=== PATIENT | male | born 1975 | race Caucasian/White ===

== ENCOUNTER 2019-01-06 09:36 | Outpatient (CLI) | payer BC, SELFPAY ==
[2019-01-06 13:25] LABS: ALT 72 U/L (12-78); AST 30 U/L (15-37); Albumin 4.1 g/dL (3.4-5.0); Alkaline Phosphatase 68 U/L (46-116); Anion Gap 8.8 mmol/L (3-11); BUN 20 mg/dL (7-18); Bilirubin, Total 0.8 mg/dL (0.2-1.0); CO2 27.2 mmol/L (21.0-32.0); CREATININE 0.92 mg/dL (0.70-1.30); Calcium 8.8 mg/dL (8.5-10.1); Chloride 105 mmol/L (98-107); Cholesterol 199 mg/dL (50-200); Glucose 87 mg/dL (70-100); HDL Cholesterol 45 mg/dL (40-60); LDL CHOLESTEROL 135 mg/dL (<100); Potassium 4.2 mmol/L (3.5-5.1); Sodium 141 mmol/L (136-145); Total Protein 7.4 g/dL (6.4-8.2); Triglyceride 137 mg/dL (30-150)
== END 2019-01-06 09:56 ==
DX: Z00.00 Encounter for general adult medical examination without abnormal findings (principal); Z13.220 Encounter for screening for lipoid disorders; E66.9 Obesity, unspecified
CPT/HCPCS: 36415; 80053; 80061; 83721

== ENCOUNTER 2019-05-21 23:01 | Emergency (ER) | payer BC, SELFPAY ==
--- NOTE | 2019-05-21 23:10 | W.ED.GENAD ---
Discharge Plan Disposition Patient Disposition: HOME Condition: Stable Discharge Details Chief Complaint: EyeProblem Clinical Impression: Corneal abrasion, right Primary Care Provider: Sarah Beth Khalil ED Provider: Ortiz Quiroz Home Meds and New Rx's Prescriptions: No Action tetanus and diphther. tox (PF) 5-2 Lf unit/0.5 mL syringe 0.5 ml IM ONCE Qty: 0.5 RF: 0 ibuprofen 200 MG capsule 3 tab PO TID PRNRF: 0 Discharge Instructions Instructions: Corneal Abrasion (ED) Additional Instructions: use the antibiotic every 6 hours in the right eye while awake if still symptomatic on Friday see your medicaid billing specialist if you feel you are worsening or have severe worsening of pain return to the emergency department Medical Decision Making 44 yo male states he was opening a box and hit the right eye, denies loc or falling. He has had burning sensation since so came here. He has injected right conjunctiva on the right, perrl, no obvious foreign body seen even on eyelid eversion. Had immediate relief of pain with tetracaine and has 2mm corneal abrasion at the 10 oclock position on the conjunctiva. No periorbital swelling and iop 10 in the right and 11 in the left. Will start on erythromycin ointment and advised f/u with [facility] on Friday (this is his optemetrist) if still symptomatic and return if worsening Differential Diagnosis conjunctivitis, corneal abrasion HPI General Mode of arrival: ambulatory. Date/Time Provider Initiated Documentation: 05/21/19 23:02. Limitations to Documentation: no limitations. Information obtained by: patient. History of Present Illness 44 year old M presents to the emergency department with the chief complaint of right eye pain, described as moderate, Quality is described as burning and aching, and is localized to the eyes and right. Patient reports no radiation. Patient started experiencing this hour(s) (1) and it has been constant. No relieving factors improve symptom(s), No exacerbating factors reported . Patient notes no other symptoms.. Patient did receive the following treatments prior to arrival, none Related Data Home Medications Medication Instructions Recorded Confirmed ibuprofen 3 tab PO TID PRN 02/12/16 01/06/19 Allergies Allergy/AdvReac Type Severity Reaction Status Date / Time kiwi Allergy Verified 01/06/19 08:28 Review of Systems Review of Systems All systems reviewed & are unremarkable except as noted in HPI and below Constitutional Denies chills, Denies fever(s) and Denies weakness Cardiovascular Denies chest pain and Denies dyspnea Respiratory Denies cough and Denies dyspnea Gastrointestinal Denies abdominal pain, Denies nausea and Denies vomiting Musculoskeletal Denies joint swelling Integumentary/Breasts Denies rash Neurologic Denies weakness PFSH Social History Smoking/Tobacco Use Status: Current-Occasional Tobacco Type: cigarettes Quit status: has quit before Second Hand Exposure: Yes Alcohol Intake: current Alcohol Intake frequency: holidays/special occasions only Drug use: Never Substance use type: other Household members: spouse and children Housing: house 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 Pets and animals: Yes Pets and animals: cat(s) and dog(s) Sexually active: Yes Do you think of yourself as: straight/heterosexual Current gender identity: male What is your relationship status?: How often do you talk on the phone with friends or family?: three or more times per week How often do you get together with friends or relatives?: three or more times per week How often do you attend adventist or baptism services?: 1-3 times per year Do you belong to any clubs or organized social groups?: no Panel score (0-1 are the most socially isolated patients): 2 What type of physical activity do you participate in: none Duration: < 15 minutes/day Frequency: 3-4 times per week Tammy/Adventism: Taoism Special tammy needs: No Seatbelt use: always Helmet use: Yes Helmet use: always Do you feel safe at home: Yes Do you feel safe in your relationship?: Yes Exam Const General: no acute distress Orientation: alert HENMT Head: normal to inspection Ears: external ears normal General nose exam: external nose normal Mouth: moist mucous membranes Eyes Eyelids: eyelids normal Neck Neck: normal visual inspection Resp Effort & Inspection: normal respiratory effort and able to speak in complete sentences Cardio Rate: regular rate Skin General skin exam: no rashes or lesions noted Neuro General: alert and oriented x3 Extrem General: normal to inspection Psych Mental Status: mental status grossly normal
[2019-05-21 23:11] VITALS: BP 132/82; PULSE 65; RESP 16; TEMP 36.4; O2SAT 95
--- NOTE | 2019-05-21 23:15 | ED.GENADUL_ITS ---
Discharge Plan Disposition Patient Disposition: HOME Condition: Stable Discharge Details Chief Complaint: EyeProblem Clinical Impression: Corneal abrasion, right Primary Care Provider: Sarah Beth Khalil ED Provider: Ortiz Quiroz Home Meds and New Rx's Prescriptions: No Action tetanus and diphther. 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 He has had burning sensation since so came here. He has injected right conjunctiva on the right, perrl, no obvious foreign body seen even on eyelid eversion. Had immediate relief of pain with tetracaine and has 2mm corneal abrasion at the 10 oclock position on the conjunctiva. No periorbital swelling and iop 10 in the right and 11 in the left. Will start on erythromycin ointment and advised f/u with [facility] on Friday (this is his optemetrist) if still symptomatic and return if worsening Differential Diagnosis conjunctivitis, corneal abrasion HPI General Mode of arrival: ambulatory . Date/Time Provider Initiated Documentation: 05/21/19 23:02 . Limitations to Documentation: no limitations . Information obtained by: patient . History of Present Illness 44 year old M presents to the emergency department with the chief complaint of right eye pain, described as moderate, Quality is described as burning and aching, and is localized to the eyes and right. Patient reports no radiation. Patient started experiencing this hour(s) (1) and it has been constant. No relieving factors improve symptom(s), No exacerbating factors reported . Patient notes no other symptoms.. Patient did receive the following treatments prior to arrival, none Related Data Home Medications Medication Instructions Recorded Confirmed ibuprofen 3 tab PO TID PRN 02/12/16 01/06/19 Allergies Allergy/AdvReac Type Severity Reaction Status Date / Time kiwi Allergy Verified 01/06/19 08:28 Review of Systems Review of Systems All systems reviewed & are unremarkable except as noted in HPI and below Constitutional Denies chills, Denies fever(s) and Denies weakness Cardiovascular Denies chest pain and Denies dyspnea Respiratory Denies cough and Denies dyspnea Gastrointestinal Denies abdominal pain, Denies nausea and Denies vomiting Musculoskeletal Denies joint swelling Integumentary/Breasts Denies rash Neurologic Denies weakness PFSH Social History Smoking/Tobacco Use Status: Current-Occasional Tobacco Type: cigarettes Quit status: has quit before Second Hand Exposure: Yes Alcohol Intake: current Alcohol Intake frequency: holidays/special occasions only Drug use: Never Substance use type: other Household members: spouse and children Housing: house 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 Pets and animals: Yes Pets and animals: cat(s) and dog(s) Sexually active: Yes Do you think of yourself as: straight/heterosexual Current gender identity: male What is your relationship status?: How often do you talk on the phone with friends or family?: three or more times per week How often do you get together with friends or relatives?: three or more times per week How often do you attend faith or sabianist services?: 1-3 times per year Do you belong to any clubs or organized social groups?: no Panel score (0-1 are the most socially isolated patients): 2 What type of physical activity do you participate in: none Duration: < 15 minutes/day Frequency: 3-4 times per week Tammy/Sikhism: Bahai Special tammy needs: No Seatbelt use: always Helmet use: Yes Helmet use: always Do you feel safe at home: Yes Do you feel safe in your relationship?: Yes Exam Const General: no acute distress Orientation: alert HENMT Head: normal to inspection Ears: external ears normal General nose exam: external nose normal Mouth: moist mucous membranes Eyes Eyelids: eyelids normal Neck Neck: normal visual inspection Resp Effort & Inspection: normal respiratory effort and able to speak in complete sentences Cardio Rate: regular rate Skin General skin exam: no rashes or lesions noted Neuro General: alert and oriented x3 Extrem General: normal to inspection Psych Mental Status: mental status grossly normal
[2019-05-21] MEDS: Erythromycin Ophth Oint 3.5 GM TUBE OP (23:27)
[2019-05-21] MEDS: Tetracaine 0.5% 4 ML BTL (23:28)
[2019-05-21] MEDS: Fluorescein STRIPS 100/BOX 1 MG (23:28)
== END 2019-05-21 23:33 | disposition home or self-care (01) ==
PROVIDERS: Emergency Provider Emergency Medicine
DX: S05.01XA Injury of conjunctiva and corneal abrasion without foreign body, right eye, initial encounter (principal); W22.8XXA Striking against or struck by other objects, initial encounter
CPT/HCPCS: 99283

== ENCOUNTER 2020-01-07 00:33 | Outpatient (CLI) | payer BC, SELFPAY ==
[2020-01-07 08:24] LABS: ALT 67 U/L (16-63); AST 26 U/L (15-37); Albumin 3.9 g/dL (3.4-5.0); Alkaline Phosphatase 72 U/L (46-116); Anion Gap 5.6 mmol/L (3-11); BUN 18 mg/dL (7-18); Bilirubin, Total 0.4 mg/dL (0.2-1.0); CO2 30.4 mmol/L (21.0-32.0); CREATININE 1.04 mg/dL (0.70-1.30); Calcium 8.5 mg/dL (8.5-10.1); Chloride 105 mmol/L (98-107); Glucose 98 mg/dL (74-106); Potassium 4.6 mmol/L (3.5-5.1); Sodium 141 mmol/L (136-145)
== END 2020-01-07 00:53 ==
DX: Z00.00 Encounter for general adult medical examination without abnormal findings (principal); Z13.228 Encounter for screening for other metabolic disorders
CPT/HCPCS: 36415; 80053

== ENCOUNTER 2020-01-13 09:15 | Outpatient (CLI) | payer BC, SELFPAY ==
--- NOTE | 2020-01-13 09:30 | DI.RAD_ITS ---
EXAM: XR CHEST 2V PA LATERAL INDICATION: chronic cough - blood tinged sputum every AM, R05. COMPARISON: CHEST 2 VIEWS PA,LAT from 12/20/2010 TECHNIQUE: 2D digital imaging was performed. FINDINGS: The lungs are suboptimally inflated. There is mild motion on the lateral view. Heart size is withi n normal limits for degree of inspiration. The lungs are clear. No mass, infiltrate, effusion or pn eumothorax is seen. IMPRESSION: Somewhat limited exam due to poor pulmonary inflation. No acute abnormality is seen. DATA REPOSITORY: RADIATION DOSE DELIVERED:
== END 2020-01-13 09:35 ==
DX: R05 Cough (principal); R04.2 Hemoptysis
CPT/HCPCS: 71046

== ENCOUNTER 2020-06-09 02:47 | Outpatient (CLI) | payer BC, SELFPAY ==
[2020-06-09 16:43] LABS: Ferritin 208 ng/mL (26-388); TSH (W/Ref FT4) 1.79 uIU/mL (0.36-3.74); Vitamin B12 250 pg/mL (193-986)
[2020-06-12 05:53] LABS: Vitamin D 25 Total 22.2 ng/ml (30-100)
== END 2020-06-09 03:07 ==
PROVIDERS: Visit Provider Internal Medicine Sleep Medicine
DX: M25.50 Pain in unspecified joint (principal); R53.83 Other fatigue; E55.9 Vitamin D deficiency, unspecified
CPT/HCPCS: 36415; 82306; 82607; 82728; 84443

== ENCOUNTER 2020-09-11 07:41 | Outpatient (CLI) | payer BC, SELFPAY ==
[2020-09-13 18:22] LABS: COVID-19 RT-PCR Result NEGATIVE (Negative)
== END 2020-09-11 08:01 ==
PROVIDERS: Visit Provider Internal Medicine Sleep Medicine
DX: Z11.59 Encounter for screening for other viral diseases (principal); Z01.818 Encounter for other preprocedural examination
CPT/HCPCS: U0003

== ENCOUNTER 2020-11-14 00:23 | Outpatient (CLI) | payer BC, SELFPAY ==
--- NOTE | 2020-11-14 06:30 | DI.US_ITS ---
EXAM: US SCROTUM CLINICAL HISTORY: Hydrocele,N43,3. TECHNIQUE: Scrotal ultrasound performed using grayscale, color-flow and spectral Doppler analysis. COMPARISON: No exams were available for comparison FINDINGS: Right testicle: 4.4 x 2.7 x 3.0 cm Echogenicity: Normal. Contour: Smooth. Mass: None seen. Microlithiasis: None. Hydrocele: None. Variocele: None. Hernia: No peristalsing bowel loop identified. Epididymis: Normal. Left testicle: 4.5 x 2.8 x 2.8 cm Echogenicity: Normal. Contour: Smooth. Mass: None seen. Microlithiasis: None. Hydrocele: Large hydrocele measuring 6.8 x 3.7 x 3.7 cm. Variocele: None. Hernia: No peristalsing bowel loop identified. Epididymis: Epididymal appendices are noted which are normal variants. DOPPLER: Color: Symmetric and uniform, no hyperemia. Duplex: Bilateral testicular arterial waveforms visualized. IMPRESSION: Large left hydrocele measuring 6.8 x 3.7 x 3.7 cm. DATA REPOSITORY:
== END 2020-11-14 00:43 ==
PROVIDERS: Visit Provider Nurse Practitioner Family
DX: N43.3 Hydrocele, unspecified (principal)
CPT/HCPCS: 76870

== ENCOUNTER 2020-11-29 04:00 | Outpatient (CLI) | payer BC, SELFPAY ==
[2020-11-30 14:42] LABS: COVID-19 RT-PCR UVMMC Result Negative (Negative)
== END 2020-11-29 04:20 ==
DX: Z20.828 Contact with and (suspected) exposure to other viral communicable diseases (principal)
CPT/HCPCS: U0003

== ENCOUNTER 2021-01-15 09:15 | Outpatient (CLI) | payer BC, SELFPAY ==
[2021-01-15 12:41] LABS: ALT 71 U/L (16-63); AST 28 U/L (15-37); Albumin 4.1 g/dL (3.4-5.0); Alkaline Phosphatase 77 U/L (46-116); Anion Gap 6.4 mmol/L (3-11); BUN 19 mg/dL (7-18); Bilirubin, Total 0.6 mg/dL (0.2-1.0); CO2 30.6 mmol/L (21.0-32.0); Calcium 8.7 mg/dL (8.5-10.1); Chloride 104 mmol/L (98-107); Glucose 100 mg/dL (74-106); Potassium 4.7 mmol/L (3.5-5.1); Sodium 141 mmol/L (136-145); Total Protein 7.4 g/dL (6.4-8.2)
== END 2021-01-15 09:16 | disposition home or self-care (01) ==
LOC: LOS 09:15
DX: Z00.00 Encounter for general adult medical examination without abnormal findings (principal); Z13.228 Encounter for screening for other metabolic disorders
CPT/HCPCS: 36415; 80053

== ENCOUNTER 2021-01-22 10:30 | Outpatient (CLI) | payer BC, SELFPAY ==
[2021-01-23 11:48] LABS: COVID-19 RT-PCR UVMMC Result Negative (Negative)
== END 2021-01-22 10:31 | disposition home or self-care (01) ==
LOC: LBO 10:30
DX: Z20.822 Contact with and (suspected) exposure to COVID-19 (principal)
CPT/HCPCS: U0003

== ENCOUNTER 2021-01-29 09:05 | Outpatient (CLI) | payer BC, SELFPAY ==
[2021-01-30 12:49] LABS: COVID-19 RT-PCR UVMMC Result Negative (Negative)
== END 2021-01-29 09:06 | disposition home or self-care (01) ==
LOC: LBO 09:05
DX: Z20.822 Contact with and (suspected) exposure to COVID-19 (principal)
CPT/HCPCS: U0003

== ENCOUNTER 2021-05-07 02:28 | Outpatient (CLI) | payer BC, SELFPAY ==
[2021-05-08 14:33] LABS: COVID-19 RT-PCR UVMMC Result Negative (Negative)
== END 2021-05-07 02:29 | disposition home or self-care (01) ==
LOC: LBO 02:28
DX: Z20.822 Contact with and (suspected) exposure to COVID-19 (principal)
CPT/HCPCS: U0003

== ENCOUNTER 2022-09-24 21:15 | Emergency (ER) | payer BC, SELFPAY ==
[2022-09-24 21:20] VITALS: BP 139/76; PULSE 74; RESP 20; TEMP 36.9; O2SAT 95
--- NOTE | 2022-09-24 22:15 | DI.RAD_ITS ---
Exam(s) XR KNEE RT 3V AP,LAT,LIA EXAM: XR KNEE RT 3V AP,LAT,LIA CLINICAL HISTORY: right knee injury. TECHNIQUE: 2D digital imaging was performed. Three views. COMPARISON: No exams were available for comparison FINDINGS: BONES: No acute fracture is present. No bony destructive lesion is seen. JOINTS: The knee is normally aligned. No joint effusion is seen. SOFT TISSUE: Normal. IMPRESSION: Unremarkable radiographs of the right knee. DATA REPOSITORY: RADIATION DOSE DELIVERED:
[2022-09-24] MEDS: Ketorolac 15 MG/ML VIAL IM (22:44)
--- NOTE | 2022-09-24 23:15 | DI.VRAD_ITS ---
PROCEDURE INFORMATION: Exam: XR Right Knee Exam date and time: 09/24/2022 10:57 PM Age: 47 years old Clinical indication: Other: Right knee injury TECHNIQUE: Imaging protocol: Radiologic exam of the Right knee. Views: 3 views. COMPARISON: CR RIGHT ANKLE COMPLETE 02/12/2016 7:09 PM FINDINGS: Bones/joints: No displaced fractures or dislocations. Soft tissues: Normal. IMPRESSION: No acute findings. Dictated and Authenticated by: Rowdy Merchant MD. Ordering:KIRAN Samuel MD
--- NOTE | 2022-09-24 23:22 | ED.GENADUL_ITS ---
Discharge Plan Disposition Patient Disposition: HOME Condition: Stable Discharge Details Clinical Impression: Right knee sprain Primary Care Provider: Unknown,Unknown ED Provider: Jimmie Hagan Home Meds and New Rx's Prescriptions: No Action cholecalciferol (vitamin D3) 25 mcg (1,000 unit) capsule 25 mcg PO DAILY Discharge Instructions Instructions: Knee Sprain (ED) Additional Instructions: You may continue to take [id number] medication as needed for discomfort. Please wear knee brace until you are seen by orthopedics and use crutches at least for the next 4 to 7 days and then slowly advance activity as tolerated. Follow-up with orthopedist as directed by the office Referrals: [facility] [Provider Group] Discharge Data Discharge Date/Time-TO BE ENTERED AT DEPARTURE: 09/24/22 23:46 Medical Decision Making Patient presenting the ER for chief complaint of right knee injury. 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 He initially was able to keep mobile and weightbearing but then after about 3 hours he has no longer able to fully extend his knee and states significant both lateral and medial pain. Physical exam shows pain to palpation of the medial knee but no ligamentous pain on testing to the medial knee but more laxity and pain to the lateral knee. Anterior and posterior drawer is unremarkable and does not elicit pain. Suspect knee sprain but will perform radiological imaging due to patient being nonweightbearing. Patient given Toradol pending results Review of radiological imaging and radiologist interpretation shows no acute findings. Patient placed in hinged knee brace and on crutches and placed on Ortho follow-up list. After discussion of diagnosis and plan of care patient has no further needs, questions, or concerns and states clear understanding to return to the emergency department for any worsening symptoms. This documentation was generated using [employer] dictation system, please disregard any oddities of phrase or misspellings. Imaging Data Radiologic Study: Imaging: X-Ray Radiologist's impression: FINDINGS: Bones/joints: No displaced fractures or dislocations. Soft tissues: Normal. IMPRESSION: No acute findings. HPI General Mode of arrival: wheelchair . Date/Time Provider Initiated Documentation: 09/24/22 21:53 . Limitations to Documentation: no limitations . Information obtained by: patient and RN notes reviewed . History of Present Illness 47 year old M presents to the emergency department with the chief complaint of right knee injury, described as moderate, with intensity rated at 4. Quality is described as aching and sharp, and is localized to the right and lower extremity. Patient started experiencing this hour(s) (4) and it has been constant. Immobilization improves symptom(s), and Rest improves symptom(s), Movement worsens symptoms . Patient notes no other symptoms.. Patient did receive the following treatments prior to arrival, none Related Data Home Medications Medication Instructions Recorded Confirmed cholecalciferol (vitamin D3) 25 25 mcg PO DAILY 01/16/21 07/02/22 mcg (1,000 unit) capsule Allergies Allergy/AdvReac Type Severity Reaction Status Date / Time kiwi Allergy Verified 07/02/22 15:07 General Stated Complaint: Orthopedic VIK: 4 Review of Systems Narrative: 6 systems reviewed and unremarkable except what is marked below. Musculoskeletal Musculoskeletal: Reports as per HPI, Reports arthralgias, Reports limited range of motion, Denies numbness and Denies tingling Integumentary/Breasts Skin/Breast: Denies wounds Neurologic Neurologic: Denies numbness and Denies tingling PFSH All Active Problems (Updated 09/24/22 @ 23:28 by Jimmie Hagan NP) Right knee sprain (Acute) Hydrocele in adult (Acute) Periodic limb movement disorder (Acute) Per sleep clinic - 05/29/2020 BERT on CPAP (Chronic) Severe per sleep study Cough in adult (Acute) Healthcare maintenance (Acute) Shoulder pain, right (Acute) Obesity (Chronic) Has daytime drowsiness (Acute 03/02/18) Acute pain of left knee (Acute 01/29/17) Abdominal discomfort in left upper quadrant (Acute 03/02/18) Medical History Abdominal discomfort in left upper quadrant (03/02/18) Acute pain of left knee (01/29/17) Cough in adult Fatigue Has daytime drowsiness (03/02/18) Obesity BERT on CPAP Severe per sleep study Periodic limb movement disorder Per sleep clinic - 05/29/2020 Shoulder pain, right Surgical History PROCEDURES l knee tumor removed (childhood) Family History Father Pancreatic cancer Sister No problems noted. Maternal Grandfather Diabetes Heart disease Hyperlipidemia Stroke Lung cancer Paternal Grandfather No problems noted. Maternal Grandmother No problems noted. Paternal Grandmother No problems noted. Son No problems noted. Son Anxiety Daughter No problems noted. Daughter No problems noted. Mother Diabetes Depression Hyperlipidemia Other Family history of prostate cancer Social History Smoking/Tobacco Use Status: Former Tobacco Use Smokeless tobacco user: chewing tobacco Quit status: has quit before Second Hand Exposure: Yes Smoking risk assessment performed?: Yes Alcohol Intake: current Alcohol Intake frequency: holidays/special occasions only Alcohol type: hard liquor Drug use: Never Substance use type: does not use and other Counseling given: No Counseling provided: none Caregiver/Support person: Yes Household members: spouse Housing: house Do you need help understanding health information?: Rarely 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 Pets and animals: Yes Pets and animals: cat(s) and dog(s) Sexually active: Yes Do you think of yourself as: straight/heterosexual Current gender identity: male What is your relationship status?: How often do you talk on the phone with friends or family?: three or more times per week How often do you get together with friends or relatives?: once per week How often do you attend christianity or jehovah's witness services?: 1-3 times per year Do you belong to any clubs or organized social groups?: no Panel score (0-1 are the most socially isolated patients): 2 What type of physical activity do you participate in: none Duration: < 15 minutes/day Frequency: daily Tammy/Buddhism: Mu-Ism Special tammy needs: No Seatbelt use: always Helmet use: Yes Helmet use: always Drive intox or ride w/intox transit driver: No Do you feel safe at home: Yes Do you feel safe in your relationship?: Yes Exam Const General: cooperative, no acute distress and not ill appearing Orientation: alert, awake and oriented x3 HENMT Mouth: moist mucous membranes Resp Effort & Inspection: normal respiratory effort, able to speak in complete sentences and no respiratory distress Cardio Rate: regular rate Rhythm: regular rhythm Pulses: normal peripheral pulses Skin General skin exam: no rashes or lesions noted Neuro General: patient alert, patient awake, patient oriented x3, moves all extremities and no focal motor deficits Sensory Exam: no sensory deficits noted Extrem General: normal exam except as noted Right lower extremity: knee Details: tenderness Location: of the medial joint line and knee ligament exam abnormal Details: varus stress test normal Details: both pain and laxity noted Course Vital Signs Vital signs: Vital Signs Temperature 36.9 C 09/24/22 21:20 Pulse 74 09/24/22 21:20 Respiratory Rate 20 09/24/22 21:20 Blood Pressure 139/76 09/24/22 21:20 Pulse Oximetry 95 09/24/22 21:20 Temperature 36.9 C 09/24/22 21:20 Temperature Source Temporal Artery Scan 09/24/22 21:20 Pulse 74 09/24/22 21:20 Respiratory Rate 20 09/24/22 21:20 Blood Pressure 139/76 09/24/22 21:20 Blood Pressure Position Sitting 09/24/22 21:20 Pulse Oximetry 95 09/24/22 21:20 Oxygen Delivery Method Room Air 09/24/22 21:20 Oxygen Flow Rate 0 09/24/22 21:20 Pain Level 4 09/24/22 21:20
== END 2022-09-24 23:46 | disposition home or self-care (01) ==
PROVIDERS: Emergency Provider Nurse Practitioner Family
DX: S83.8X1A Sprain of other specified parts of right knee, initial encounter (principal); X50.1XXA Overexertion from prolonged static or awkward postures, initial encounter
CPT/HCPCS: 29505; 73562; 96374; 99284; 99283; J1885

== ENCOUNTER → 2022-10-15 02:20 | Outpatient (CLI) | payer BC, SELFPAY ==
--- NOTE | 2022-10-15 07:00 | DI.MRI_ITS ---
Exam(s) MR LOWER JOINT RT WO EXAM: MR LOWER JOINT RT WO CLINICAL HISTORY: R KNEE PAIN,SPRAIN,[id number]. TECHNIQUE: Multiplanar multisequence MRI was performed. COMPARISON: CR,XR XR KNEE RT 3V AP,LAT,LIA from 09/24/2022 FINDINGS: BONES: There are small contusions seen involving the medial aspects of both the medial femoral condyl e in the medial tibial plateau. No fracture is identified. JOINTS: There is mild thinning of the articular cartilage in the lateral patellar facet inferiorly. The articular cartilage is otherwise well maintained. There is a small joint effusion. TENDONS: Extensor mechanism: Unremarkable. Medial retinaculum: Unremarkable. Lateral retinaculum: Unremarkable. Popliteus: Unremarkable. MUSCLES: Unremarkable. MENISCI: There is some irregularity and abnormal signal seen in the posterior aspect of the body of t he medial meniscus suspicious for tear. The lateral meniscus is unremarkable. SOFT TISSUES: There is edema seen in the soft tissues particularly anterior to extensor mechanism. LIGAMENTS: Anterior Cruciate: Unremarkable. Posterior Cruciate: Unremarkable. Medial Collateral:There is fluid seen around the intact medial collateral ligament consistent with a sprain. Lateral Collateral: Unremarkable. OTHER: IMPRESSION: 1. MCL sprain. 2. Findings suspicious for a tear of the body of the medial meniscus. 3. Small contusions involving the medial aspects of both the medial femoral condyle and the medial ti bial plateau. DATA REPOSITORY:
== END ==
PROVIDERS: PCP Nurse Practitioner Family; Visit Provider Student in an Organized Health Care Education/Training Program
DX: S83.411A Sprain of medial collateral ligament of right knee, initial encounter (principal); X58.XXXA Exposure to other specified factors, initial encounter
CPT/HCPCS: 73721

== ENCOUNTER 2022-11-07 12:01 | Day surgery (SDC) | payer BC, SELFPAY ==
[2022-11-07] VITALS (9 sets, daily range): BP systolic 115–146; BP diastolic 56–92; PULSE 54–70; RESP 12–18; TEMP 36.1–36.4; O2SAT 97–99; BMI 41.7
[2022-11-07] MEDS: Lactated Ringers 1,000 ML 30 ML IV (12:43)
--- NOTE | 2022-11-07 14:28 | W.ANESPRE ---
General Info Date of Service Date Performed: 11/07/22 Height: 5 ft 10 in Weight: 132 kg Body Mass Index (BMI): 41.7 Surgical Procedure: Operation Date: 11/07/22 15:10 Proposed Procedure Side Surgeon p Knee Arthroscopy /Partial Medial Menisectomy VS Repair Right Yaw Kee MD Meds Allergies and Home Medications Allergies Allergy/AdvReac Type Severity Reaction Status Date / Time kiwi Allergy Severe Anaphylaxis Verified 11/05/22 12:20 Home Medication Medication Instructions Recorded Unknown [No Known Home Meds] 10/08/22 Current Visit Medications: Current Medications Generic Name Dose Route Start Last Admin Trade Name Freq PRN Reason Stop Dose Admin Ringer's Solution 1,000 mls @ 30 mls/hr 11/07/22 06:00 11/07/22 12:43 IV 12/06/22 23:59 30 mls/hr INFUSION CLEMENT Administration Cefazolin Sodium 3,000 mg/ 100 mls @ 200 mls/hr 11/07/22 06:00 Sodium Chloride IVPB 11/07/22 16:00 PREOP CLEMENT IV Miscellaneous Supplies 1 each 11/07/22 06:00 Iv Access IV 12/06/22 23:59 DIRECTED CLEMENT Oxycodone HCl 0 mg 11/07/22 07:05 Oxycodone 5 Mg Tab PO Q3H PRN PRN Pain Sodium Chloride 0 ml 11/07/22 06:00 Normal Saline Flush 10 Ml Syr IV 12/06/22 23:59 PRN PRN Sodium Chloride 0 ml 11/07/22 06:00 Normal Saline 10 Ml Vial IJ 12/06/22 23:59 DIRECTED PRN Sterile Water 0 ml 11/07/22 06:00 Water,Injection,Sterile 10 Ml Vial IJ 12/06/22 23:59 DIRECTED PRN PFSH Active Problems Active Problems: Problem Status Onset Code Abdominal discomfort in left upper quadrant 03/02/18 R10.12 Acute pain of left knee 01/29/17 M25.562 Has daytime drowsiness 03/02/18 R40.0 Obesity E66.9 Shoulder pain, right Healthcare maintenance Cough in adult R05 BERT on CPAP G47.33, Z99.89 Periodic limb movement disorder G47.61 Hydrocele in adult N43.3 Acute medial meniscus tear of right knee 09/24/22 S83.241A Medical History Medical History Internal derangement of right knee Surgical History Surgical History PROCEDURES l knee tumor removed (childhood) S/P tendon repair Finger Tobacco Smoking/Tobacco Use Status: Former Tobacco Use Smokeless tobacco user: chewing tobacco Passive smoking exposure: No Second hand exposure: Yes Alcohol Alcohol Intake: current Alcohol intake frequency: holidays/special occasions only Alcohol type: hard liquor Substance Use Substance use: Never Substance use type: does not use and other Counseling provided: none Vital Signs and Lab Results Vital Signs Most Recent Vital Signs in EMR: Most Recent Vital Signs Temp Pulse Resp BP Pulse Ox 36.1 C L 54 L 15 128/92 H 98 11/07/22 12:06 11/07/22 12:06 11/07/22 12:06 11/07/22 12:06 11/07/22 12:06 Lab Results Blood Type / Crossmatch: No Data to Display Complete Blood Count: No Data to Display Complete Metabolic Panel: No Data to Display Liver Function Panel: No Data to Display Coagulation Panel: No Data to Display Cardiac Panel: No Data to Display Arterial Blood Gas: No Data to Display Venous Blood Gas: No Data to Display Pancreas Panel: No Data to Display Thyroid Panel: No Data to Display Infectious Disease: No Data to Display Blood Cultures: No Data to Display Toxicology Panel: No Data to Display Anesthesia Assessment and Plan Anesthesia History Personal History: Delayed Emergence Family History: No Family History of Anesthesia Complications Exercise Tolerance Exercise Tolerance: Metabolic Equivalents>4 Pertinent Negatives Pertinent Negatives: No Symptoms of GERD, No Major Cardiovascular Symptoms or Complaints, No Major Pulmonary Symptoms or Complaints (BERT doesn't wear CPAP) and No History of CVA/TIA Cardiac & Pulmonary Exam Cardiac Exam: Normal S1/S2 Heart Sounds Pulmonary Exam: Clear Bilateral Breath Sounds Implantable Cardiac Device Does patient have a Pacemaker or an ICD?: No Airway Exam Known Difficult Airway: No Mallampati Class: 2 Mouth Opening: Normal (> 3cm) Thyromental Distance: Greater than 3 cm Facial Hair: Full Gastelum Neck Range of Motion: Full ROM Neck Circumference: Thick Teeth Condition: Normal Dentition Airway Comments: #11 chipped Missing teeth upper right ASA Classification ASA Score: ASA 2 Emergency Case?: No NPO Status NPO Status: NPO Clears >2 hours, Solids >8 hours Anesthesia Plan Resuscitation Status: Full Code Anesthesia Technique: General Anesthesia Airway Planned: LMA Monitors Used: Standard Monitors
[2022-11-07] MEDS: ceFAZolin 3,000 MG in Normal Saline 100 ML 200 MG IVPB (14:45)
--- NOTE | 2022-11-07 15:00 | W.PM.OP ---
Date of service: 11/07/22 Time of Service: 15:00 Operative Note Operative Note DATE OF PROCEDURE: 11/07/22 PRE-OP DIAGNOSIS: Right knee 1. Medial meniscus tear POST-OP DIAGNOSIS: same 2. Patellofemoral and medial femoral condyle chondromalacia PROCEDURE: Right knee 1. Partial medial meniscectomy, CPT #88499 SURGEON: Yaw Kee RELATIONSHIP MANAGEMENT LEAD: None None ANESTHESIA TYPE: Local By Surgeon and General LMA/ETT Refer to Anesthesia Record ESTIMATED BLOOD LOSS: 5 PATHOLOGY: none sent TOURNIQUET TIME: 0 Patient was transported to: PACU Patient's condition: stable Indications: Please see complete medical record for details. Findings: Exam under anesthesia: Full ROM, stable Arthroscopic findings: Moderate patellofemoral chondromalacia undersufrace central patella and corresponding central trochlea. Moderate chondromalacia medial femoral condyle. Oblique white to red-white zone medial meniscus tear located at the posterior horn and body junction. Intact ACL. Intact lateral meniscus. Procedure Description: In the operating room, genral anesthesia was induced. The patient was positioned supine on the operating room table. All bony prominences were well-padded. Preoperative antibiotics were administered. The knee was prepped and draped in the usual sterile fashion. The correct patient, procedure, and side of the procedure were all verified prior to incision. Exam under anesthesia was performed. 10 cc of 0.25% bupivacaine containing epinephrine was infiltrated about the planned anteromedial and anterolateral knee arthroscopy portals. The portals were established and a complete diagnostic arthroscopy was performed with relevant findings detailed above. Using a combination of hand instruments including meniscal biters and a power shaver and working through the anteromedial and anterolateral portals the medial meniscus was debrided of all torn tissue to a stable margin. Care was taken to preserve as much meniscus tissue was possible. The meniscal remnant was probed and found to have a stable margin, stable root, and no other tears Under direct arthroscopic visualization an 18-gauge needle was passed into the knee from superolateral into the suprapatellar pouch. The knee was copiously irrigated with arthroscopic fluid until there was a clear effluent before being drained of all fluid. The anteromedial and anterolateral portals were closed in 3-0 Monocryl in a buried interrupted fashion. 20 cc of 0.25% bupivacaine with epinephrine containing 4 mg of morphine was infiltrated into the knee through the previously placed needle. Mastisol, Steri-Strips, and 4 x 4 gauze were applied over the incisions followed by sterile soft roll. The knee was then wrapped gently with an ALLEN comressive bandage. The patient awoke from anesthesia without complication and was transferred to the recovery room in a stable condition.
[2022-11-07] MEDS: EPINEPHrine 30 MG/30 ML VIAL (15:10)
[2022-11-07] MEDS: Bupivacaine 0.25% Pres-Free W/EPI 30 ML VIAL (15:10)
[2022-11-07] MEDS: MORPHine 4 MG/ML SYR (15:11)
--- NOTE | 2022-11-07 16:19 | W.PM.DSUDISC ---
Date of service: 11/07/22 Time of Service: 16:00 Discharge Plan Disposition Patient Disposition: Home Discharge Details Attending Provider: Yaw Kee Primary Care Provider: Simona Jaffe Home Meds and New Rx's Prescriptions: New aspirin 81 mg tablet,delayed release (DR/EC) 81 mg PO DAILY 14 Days Qty: 14 0RF naproxen 250 mg tablet 250 - 500 mg PO BID PRNQty: 40 0RF Rx Instructions: take with a meal oxycodone 5 mg tablet 5 - 10 mg PO Q4H MDD 30 mg PRN (Reason: moderate to severe pain) Qty: 18 0RF Discharge Instructions Additional Instructions: Surgery: Right knee arthroscopy with partial medialmeniscectomy Activity: Weightbearing as tolerated. Advance range of motion as comfort allows. No knee brace or crutches needed as soon as comfortable. Recommend avoiding high?impact activities for 6-8 weeks. A physical therapy prescription will be sent electronically to start in about 3 weeks. Prescriptions: Aspirin 81 mg daily tomorrow afternoon or evening, >24 hours after surgery, for 2 weeks Naproxen 250 mg take 1-2 every 12 hours with a meal as needed for moderate pain Oxycodone 5 mg take 1-2 every 4-6 hours as needed for severe pain You may use [id number] Tylenol (acetaminophen) as needed for mild pain. These pain medications may be taken all at once or in different combinations as needed. Also, recommend Colace (docusate) as a stool softener as surgery and pain medicine cause constipation. You may try [id number] diphenhydramine (Benadryl) 25-50 mg nightly as a sleep aid Dressings: Leave dressing in place for 3 days. May then remove and leave open to air or cover incisions with Band-Aids. May shower after 5 days. Follow-up: 10-[address] Kee You may take off the leg compression stockings this evening at home. You may also leave them on a few days longer if you have a history of leg swelling or edema. Let us know right away if you develop any redness, drainage, fevers, chest pain, or trouble breathing. Do not drink alcohol or drive for at least 24 hours after anesthesia. Please call the office during business hours with any questions or concerns. Discharge Orders Discharge Orders: Discharge Order (Routine); Ordered 11/07/22 Ordered By: Yaw Kee DS: Diagnosis Discharge Diagnosis (1) Acute medial meniscus tear of right knee: Status: Acute
--- NOTE | 2022-11-07 16:31 | W.ANESPOSTOP ---
Postoperative Evaluation Date, Time and Location Date Performed: 11/07/22 Time Performed: 16:31 Patient Location: Day Surgery Unit Vital Signs Most Recent Imported Vital Signs: Most Recent Vital Signs Temp Pulse Resp BP Pulse Ox 36.4 C L 58 L 14 139/76 99 11/07/22 16:15 11/07/22 16:15 11/07/22 16:15 11/07/22 16:15 11/07/22 16:15 Pain Score Most Recent Pain Score: Most Recent Pain Score Pain Level 1 11/07/22 12:06 Assessment Mental Status: Awake (Alert & Oriented to Patient Baseline) Airway and Respiratory Function: Patent airway with normal (patient baseline) respiratory exam Cardiovascular Function: Hemodynamically Stable Hydration Status: Adequately Hydrated Nausea & Vomiting: No Nausea or Vomiting Pain: Pt. Denies Any Pain Peripheral Nerve Block: Patient did not receive a nerve block Postoperative Comments:: Patient continues to shiver, offered demerol as a potential remedy, patient did not want to try a medication and wishes to let it take it's course.
== END 2022-11-07 17:40 | disposition home or self-care (01) ==
PROVIDERS: PCP Nurse Practitioner Family; Visit Provider Student in an Organized Health Care Education/Training Program
PROC: (CPT 29870; principal; 2022-11-07 15:00)
DX: S83.241A Other tear of medial meniscus, current injury, right knee, initial encounter (principal); M22.41 Chondromalacia patellae, right knee; G47.33 Obstructive sleep apnea (adult) (pediatric); E66.9 Obesity, unspecified; Z68.41 Body mass index [BMI] 40.0-44.9, adult; X58.XXXA Exposure to other specified factors, initial encounter
CPT/HCPCS: 29881; J0131; J0690; J1100; J1885; J2250; J2270; J2405

== ENCOUNTER 2023-02-28 11:23 | Outpatient (CLI) | payer BC, SELFPAY ==
[2023-02-28 07:26] LABS: Abs Immature Grans 0.02 10^3/uL (0.0-0.06); Absolute Basophil Count 0.08 10^3/uL (0.0-0.2); Absolute Eosinophil Count 0.38 10^3/uL (0.0-0.7); Absolute Lymphocyte Count 2.24 10^3/uL (1.2-3.4); Absolute Neutrophil Count 3.07 10^3/uL (1.2-6.7); Basophils % 1.2; Eosinophils % 5.9; HCT 45.5 % (40.0-50.0); HGB 15.7 g/dL (13.5-17.5); Immature Grans % 0.3; Lymphocytes % 34.5; MCH 30.4 pg (27.0-33.0); MCHC 34.5 % (32.0-36.0); MCV 88 fL (80-95); MPV 12.2 fL (8.0-11.0); Monocytes % 10.8; Neutrophils % 47.3; Platelet Count 144 10^3/uL (130-400); RBC 5.17 10^6/uL (4.36-5.78); RDW 12.2 % (11.8-14.1); WBC 6.49 10^3/uL (4.4-10.8)
[2023-02-28 08:03] LABS: ALT 75 U/L (16-63); AST 27 U/L (15-37); Albumin 3.8 g/dL (3.4-5.0); Alkaline Phosphatase 82 U/L (46-116); Anion Gap 8.1 mmol/L (3-11); BUN 18 mg/dL (7-18); Bilirubin, Total 0.6 mg/dL (0.2-1.0); CO2 29.9 mmol/L (21.0-32.0); Calcium 8.2 mg/dL (8.5-10.1); Calculated LDL 129 mg/dL (<100); Chloride 104 mmol/L (98-107); Cholesterol 201 mg/dL (<200); Glucose 113 mg/dL (74-106); HDL Cholesterol 46 mg/dL (40-60); Sodium 142 mmol/L (136-145); Total Protein 7.2 g/dL (6.4-8.2); Triglyceride 131 mg/dL (<150)
[2023-02-28 09:07] LABS: Bilirubin Negative (Negative); Blood Negative (Negative); Clarity Clear (Clear); Glucose Negative (Negative); Ketones Negative (Negative); Leukocyte Esterase Negative (Negative); Nitrite Negative (Negative); Specific Gravity 1.025 (1.005-1.025); Urobilinogen 0.2 mg/dL (Up to 0.2)
== END 2023-02-28 11:24 | disposition home or self-care (01) ==
PROVIDERS: PCP Nurse Practitioner Family; Visit Provider Family Medicine
DX: Z00.00 Encounter for general adult medical examination without abnormal findings (principal); R30.0 Dysuria; Z13.6 Encounter for screening for cardiovascular disorders; E66.01 Morbid (severe) obesity due to excess calories; R73.01 Impaired fasting glucose; Z68.41 Body mass index [BMI] 40.0-44.9, adult; R14.0 Abdominal distension (gaseous)
CPT/HCPCS: 36415; 80053; 80061; 81003; 83036; 85025

== ENCOUNTER 2024-01-23 02:58 | Outpatient (CLI) | payer BC, SELFPAY ==
[2024-01-23 07:52] LABS: Hemoglobin A1C 5.5 % (<5.7)
[2024-01-23 07:57] LABS: ALT 48 U/L (16-63); AST 22 U/L (15-37); Albumin 3.9 g/dL (3.4-5.0); Alkaline Phosphatase 74 U/L (46-116); Anion Gap 5.4 mmol/L (3-11); BUN 23 mg/dL (7-18); Bilirubin, Total 0.7 mg/dL (0.2-1.0); CO2 31.6 mmol/L (21.0-32.0); CREATININE 1.1 mg/dL (0.70-1.30); Calcium 8.7 mg/dL (8.5-10.1); Calculated LDL 121 mg/dL (<100); Chloride 105 mmol/L (98-107); Cholesterol 189 mg/dL (<200); Estimated GFR 83.84 (mL/min/1.73m2); Glucose 95 mg/dL (74-106); HDL Cholesterol 49 mg/dL (40-60); Potassium 4.3 mmol/L (3.5-5.1); Sodium 142 mmol/L (136-145); Total Protein 7.5 g/dL (6.4-8.2); Triglyceride 97 mg/dL (<150)
[2024-01-23 09:37] LABS: COMMENT (LAB VIEW ONLY) 241.96 mg/dL; Microalb ug/mg Crea 3.2 ug/mg Cr
== END 2024-01-23 02:59 | disposition home or self-care (01) ==
LOC: LBO 02:58
PROVIDERS: PCP Family Medicine; Visit Provider Family Medicine
DX: E11.9 Type 2 diabetes mellitus without complications (principal)
CPT/HCPCS: 36415; 80053; 80061; 82043; 82570; 83036

== ENCOUNTER 2024-06-08 07:59 | Outpatient (CLI) | payer BC, SELFPAY ==
[2024-06-08 07:38] LABS: Bilirubin Negative (Negative); Blood Negative (Negative); Clarity Clear (Clear); Glucose Negative (Negative); Ketones Negative (Negative); Leukocyte Esterase Negative (Negative); Nitrite Negative (Negative); Specific Gravity 1.025 (1.005-1.025)
[2024-06-08 07:48] LABS: Anion Gap 7.9 mmol/L (3-11); BUN 16 mg/dL (7-18); CO2 28.1 mmol/L (21.0-32.0); CREATININE 0.9 mg/dL (0.70-1.30); Calcium 8.5 mg/dL (8.5-10.1); Chloride 105 mmol/L (98-107); Estimated GFR 106.01 (mL/min/1.73m2); Glucose 96 mg/dL (74-106); Potassium 3.9 mmol/L (3.5-5.1); Sodium 141 mmol/L (136-145)
[2024-06-08 07:54] LABS: Hemoglobin A1C 5.3 % (<5.7)
== END 2024-06-08 08:00 | disposition home or self-care (01) ==
LOC: LBO 07:59
PROVIDERS: PCP Family Medicine; Visit Provider Family Medicine
DX: R73.01 Impaired fasting glucose (principal); E11.9 Type 2 diabetes mellitus without complications; R30.0 Dysuria; R10.9 Unspecified abdominal pain; I10 Essential (primary) hypertension
CPT/HCPCS: 36415; 80048; 81003; 83036

== ENCOUNTER 2025-01-27 07:09 | Day surgery (SDC) | payer BC, SELFPAY ==
[2025-01-27] VITALS (30 sets, daily range): BP systolic 103–124; BP diastolic 58–89; PULSE 41–59; RESP 9–16; TEMP 35.9–36.3; O2SAT 96–100; BMI 24.3
--- NOTE | 2025-01-27 06:22 | W.ANESPRE ---
General Info Date of Service Date Performed: 01/27/25 Height: 5 ft 10 in Weight: 77.111 kg Body Mass Index (BMI): 24.3 Surgical Procedure: Operation Date: 01/27/25 08:40 Proposed Procedure Side Surgeon p Hydrocelectomy Left Boubacar Noel MD Meds Allergies and Home Medications Allergies Allergy/AdvReac Type Severity Reaction Status Date / Time kiwi Allergy Severe Anaphylaxis Verified 01/27/25 08:14 Home Medication ?Medication ?Instructions ?Recorded semaglutide 2 mg/dose (8 mg/3 mL) 2 mg (0.75 mL) subcut QWEEK #3 mL 09/24/24 subcutaneous pen injector metformin 500 mg tablet,extended 1,000 mg (2 x 500 mg) PO DAILY #60 11/10/24 release 24 hr tabs Current Visit Medications: Current Medications Generic Name Dose Route Start Last Admin Trade Name Freq PRN Reason Stop Dose Admin Ringer's Solution 1,000 mls @ 0 mls/hr 01/27/25 06:00 IV 01/27/25 23:59 INFUSION CLEMENT Cefazolin Sodium/Dextrose 2 gm in 50 mls @ 100 mls/hr 01/27/25 06:00 Ancef Duplex IVPB 01/27/25 23:59 PREOP CLEMENT IV Miscellaneous Supplies 1 each 01/27/25 06:00 Iv Access IV 01/27/25 23:59 DIRECTED CLEMENT Sodium Chloride 0 ml 01/27/25 06:00 Normal Saline Flush 10 Ml Syr IV 01/27/25 23:59 PRN PRN Sodium Chloride 0 ml 01/27/25 06:00 Normal Saline 10 Ml Vial IJ 01/27/25 23:59 DIRECTED PRN Sterile Water 0 ml 01/27/25 06:00 Water,Injection,Sterile 10 Ml Vial IJ 01/27/25 23:59 DIRECTED PRN PFSH Active Problems Active Problems: Problem Status Onset Code Obesity with serious comorbidity Acute E66.9 Left flank discomfort Acute R10.9 Diabetes type 2, controlled Acute E11.9 Nonalcoholic steatohepatitis (SIMPSON) Acute K75.81 Hydrocele in adult Acute N43.3 Periodic limb movement disorder Acute G47.61 BERT on CPAP Chronic G47.33, Z99.89 Shoulder pain, right Acute Medical History Medical History Past history of chewing tobacco use quit 01/2023; 3 years use Surgical History Surgical History PROCEDURES l knee tumor removed (childhood) S/P tendon repair Finger Status post arthroscopy of right knee (11/07/22) Tobacco Smoking/Tobacco Use Status: Current every day Tobacco Type: smokeless tobacco Smokeless tobacco user: chewing tobacco Passive smoking exposure: No Second hand exposure: Yes Alcohol Alcohol Intake: current Alcohol intake frequency: holidays/special occasions only Alcohol type: hard liquor Substance Use Substance use: Never Substance use type: does not use Counseling provided: none Vital Signs and Lab Results Lab Results Blood Type / Crossmatch: No Data to Display Complete Blood Count: No Data to Display Complete Metabolic Panel: No Data to Display Liver Function Panel: No Data to Display Coagulation Panel: No Data to Display Cardiac Panel: No Data to Display Arterial Blood Gas: No Data to Display Venous Blood Gas: No Data to Display Pancreas Panel: No Data to Display Thyroid Panel: No Data to Display Infectious Disease: No Data to Display Blood Cultures: No Data to Display Toxicology Panel: No Data to Display Anesthesia Assessment and Plan Anesthesia History Personal History: Delayed Emergence Family History: No Family History of Anesthesia Complications Exercise Tolerance Exercise Tolerance: Metabolic Equivalents>4 Pertinent Negatives Pertinent Negatives: No Symptoms of GERD, No Major Cardiovascular Symptoms or Complaints and No History of CVA/TIA Cardiac & Pulmonary Exam Cardiac Exam: Normal S1/S2 Heart Sounds Pulmonary Exam: Clear Bilateral Breath Sounds Implantable Cardiac Device Does patient have a Pacemaker or an ICD?: No Airway Exam Known Difficult Airway: No Mallampati Class: 4 Mouth Opening: Normal (> 3cm) Thyromental Distance: Greater than 3 cm Neck Range of Motion: Full ROM Neck Circumference: Thick Teeth Condition: Normal Dentition Airway Comments: #11 chipped Missing teeth upper right ASA Classification ASA Score: ASA 2 Emergency Case?: No NPO Status NPO Status: NPO Clears >2 hours, Solids >8 hours Anesthesia Plan Resuscitation Status: Full Code Anesthesia Technique: General Anesthesia Airway Planned: LMA Monitors Used: Standard Monitors Preoperative Comments:: 49 yo male for hydrocelectomy. Sig PMHx: BERT (CPAP), DM2 (metformin, semagltide), SIMPSON. chewing tobacco, occ EtOH. Previous Anes: - Knee scope, sevo/prop, LMA 5, no issues. Shivering post op.
[2025-01-27] MEDS: Lactated Ringers 1,000 ML 80 ML IV (08:05)
--- NOTE | 2025-01-27 08:11 | HPE_ITS ---
Date of service: 01/27/25 Time of Service: 08:11 Assessment and Plan Assessment and plan (1) Hydrocele in adult: Status: Acute Assessment and plan: We will go ahead with a left hydrocelectomy History of Present Illness History of Present Illness Chief Complaint: Left hydrocele Narrative: The patient noticed left-sided scrotal swelling for the first time about 4 years ago. The degree of swelling remained stable for a few years but then then the swelling began to increase. He was bothered by his symptoms but did not have adequate time to heal from a surgical procedure, so we have been draining the hydrocele in the office periodically. As expected, the fluid recurs. He now has time to heal from a surgical procedure and comes in for hydrocelectomy. Is not really having scrotal pain but he does notice that the size of the scrotum makes mobility more difficult. He has never had a scrotal surgery. He has no known bleeding disorders. He has no known healing issues. He has tolerated anesthesia in the past with no difficulty. Review of Systems Narrative: No fevers or chills No vision change or dysphasia Diabetes. No thyroid dysfunction. No shortness of breath, cough or hemoptysis No chest pain or palpitations No nausea, vomiting, hepatitis, ulcers, jaundice, diarrhea or constipation No seizures, strokes or peripheral neuropathy No bleeding disorders or anemia No gout PFSH All Active Problems Obesity with serious comorbidity (Acute) Left flank discomfort (Acute) Diabetes type 2, controlled (Acute) Nonalcoholic steatohepatitis (SIMPSON) (Acute) Hydrocele in adult (Acute) Periodic limb movement disorder (Acute) Per sleep clinic - 05/29/2020 BERT on CPAP (Chronic) Severe per sleep study; pending replacement of filters. Shoulder pain, right (Acute) Medical History Past history of chewing tobacco use quit 01/2023; 3 years use Surgical History PROCEDURES l knee tumor removed (childhood) S/P tendon repair Finger Status post arthroscopy of right knee (11/07/22) Family History Father Pancreatic cancer Sister No problems noted. Maternal Grandfather Diabetes Heart disease Hyperlipidemia Stroke Lung cancer Paternal Grandfather No problems noted. Maternal Grandmother No problems noted. Paternal Grandmother No problems noted. Son No problems noted. Son Anxiety Daughter No problems noted. Daughter No problems noted. Mother Diabetes Depression Hyperlipidemia Other Family history of prostate cancer Social History Smoking/Tobacco Use Status: Current every day Tobacco Type: smokeless tobacco Smokeless tobacco user: chewing tobacco Quit status: has quit before Second Hand Exposure: Yes Smoking risk assessment performed?: Yes Alcohol Intake: current Alcohol Intake frequency: holidays/special occasions only Alcohol type: hard liquor Drug use: Never Substance use type: does not use Counseling given: No Counseling provided: none Caregiver/Support person: Yes Household members: spouse and children Housing: house Number of Children: 4 Do you need help understanding health information?: Rarely current occupation: [employer] Pets and animals: Yes Pets and animals: cat(s) and dog(s) Sexually active: Yes Do you think of yourself as: straight/heterosexual Current gender identity: male What is your relationship status?: How often do you talk on the phone with friends or family?: three or more times per week How often do you get together with friends or relatives?: once per week How often do you attend lutheran or moravian services?: 1-3 times per year Do you belong to any clubs or organized social groups?: no Panel score (0-1 are the most socially isolated patients): 2 What type of physical activity do you participate in: none Duration: < 15 minutes/day Frequency: daily Tammy/Buddhist: Sikhism Special tammy needs: No Seatbelt use: always Helmet use: Yes Helmet use: always 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 Do you feel safe at home: Yes Do you feel safe in your relationship?: Yes Meds Allergies and Home Medications Allergies Allergy/AdvReac Type Severity Reaction Status Date / Time kiwi Allergy Severe Anaphylaxis Verified 01/27/25 08:14 Home Medications ?Medication ?Instructions ?Recorded ?Confirmed ?Type semaglutide 2 mg/dose (8 mg/3 mL) 2 mg (0.75 mL) subcut QWEEK #3 mL 09/24/24 01/25/25 Rx subcutaneous pen injector metformin 500 mg tablet,extended 1,000 mg (2 x 500 mg) PO DAILY #60 12/18/24 03/06/25 Rx release 24 hr tabs Exam Const General: cooperative Nutritional Appearance: obese Neck Neck: supple Resp Effort & Inspection: normal respiratory effort Auscultation: clear to auscultation bilaterally Cardio Rate: regular rate Rhythm: regular rhythm GI Inspection: obesity Palpation: soft and no masses Scrotum: hydrocele on the left Neuro General: patient alert, patient awake and patient oriented x3 Results Last Vital Signs Temp 36.0 C L 01/27/25 07:30 Pulse 54 L 01/27/25 07:30 Resp 16 01/27/25 07:30 BP 124/76 01/27/25 07:30 Pulse Ox 96 01/27/25 07:30 Time Spent Time spent with Patient: <40 minutes Time was spent: other
[2025-01-27] MEDS: ceFAZolin 2 GM/50 ML BAG IVPB (08:51)
[2025-01-27] MEDS: Bupivacaine 0.25% Pres-Free 30 ML VIAL (09:20)
[2025-01-27] MEDS: Bacitracin 1 PACKET (09:24)
--- NOTE | 2025-01-27 09:38 | W.PM.DSUDISC ---
Date of service: 01/27/25 Discharge Plan Disposition Patient Disposition: Home Condition: Stable Discharge Details Reason For Visit: hydrocelectomy Attending Provider: Boubacar Noel Primary Care Provider: Janie Elkins Home Meds and New Rx's Prescriptions: New tramadol 50 mg tablet 50 mg PO Q6H PRN (Reason: pain) Qty: 12 0RF No Action semaglutide 2 mg/dose (8 mg/3 mL) pen injector 2 mg subcut QWEEK Qty: 3 3RF metformin 500 mg tablet extended release 24 hr 1,000 mg PO DAILY Qty: 60 3RF Discharge Instructions Additional Instructions: scrotal support and ice packs to the scrotum (30 min on and 30 min off while awake) get dressings wet in AM and remove dressings followup @ 4 weeks (when back from trip to [place]) Stand Alone Forms: Anesthesia Discharge Inst., Ashlee Peterson ([facility]) Referrals: Boubacar Noel MD [ [facility] STAFF PHYSICIAN] - Activity:: no lifting over 10 pounds for 1 week Remove Dressings/Wound Care:: 24 hours Shower/Bathe:: 24 hours Diet:: As Tolerated Discharge Orders Discharge Orders: Discharge Order (Routine); Ordered 01/27/25 Ordered By: Boubacar Noel DS: Diagnosis Discharge Diagnosis (1) Hydrocele in adult: Status: Acute
[2025-01-27] MEDS: fentaNYL 100 MCG/2 ML VIAL IVP (10:25)
--- NOTE | 2025-01-27 10:57 | W.ANESPOSTOP ---
Postoperative Evaluation Date, Time and Location Date Performed: 01/27/25 Time Performed: 10:57 Patient Location: Day Surgery Unit Vital Signs Most Recent Imported Vital Signs: Most Recent Vital Signs Temp Pulse Resp BP Pulse Ox 35.9 C L 51 L 16 123/80 97 01/27/25 10:42 01/27/25 10:42 01/27/25 10:42 01/27/25 10:42 01/27/25 10:42 Pain Score Most Recent Pain Score: Most Recent Pain Score Pain Level 4 01/27/25 10:42 Assessment Mental Status: Awake (Alert & Oriented to Patient Baseline) Airway and Respiratory Function: Patent airway with normal (patient baseline) respiratory exam Cardiovascular Function: Hemodynamically Stable Hydration Status: Adequately Hydrated Nausea & Vomiting: No Nausea or Vomiting Pain: Pain is tolerable per patient Peripheral Nerve Block: Patient did not receive a nerve block
--- NOTE | 2025-01-27 11:36 | W.PM.OP ---
Operative Note Operative Note PRE-OP DIAGNOSIS: Left hydrocele POST-OP DIAGNOSIS: same PROCEDURE: Hydrocelectomy SURGEON: Boubacar Noel ASSISTING SURGEON: Jessica Greenberg ANESTHESIA TYPE: Local By Surgeon and General LMA/ETT Refer to Anesthesia Record ESTIMATED BLOOD LOSS: 10 PATHOLOGY: none sent COMPLICATIONS: None Patient was transported to: PACU Patient's condition: stable Implants: None Indications: This is a 49-year-old gentleman who has a history of left sided scrotal swelling. On ultrasound and on exam his findings are consistent with a large left hydrocele. He is symptomatic from the hydrocele, but has not been able to coordinate time off for recovery from a surgical procedure, so we did perform aspiration of hydrocele fluid in the office previously. As expected, the fluid reaccumulated. He is now able to take time off to recover from surgery so he presents for hydrocelectomy Findings: Normal testis within a large hydrocele Procedure Description: The patient was given IV antibiotics and brought to the operating room on 01/27/2025. After successful induction of general anesthesia, he was placed in the supine position. His genitalia is prepped and draped. A left scrotal field block was performed using half percent Marcaine. A transverse scrotal incision was made on the left hemiscrotum. We dissected down through the dartos muscle until the hydrocele sac was identified. With the hydrocele still intact, we used blunt dissection to free the hydrocele from the overlying dartos muscle. The testis was then delivered through the incision onto the surgical field. We continued to dissect the connective tissue attached to the exterior portion of the hydrocele sac using sharp and blunt dissection. We then opened the hydrocele sac on the anterior surface and drained a large amount of yellow-tinged fluid. We everted the hydrocele sac and inspected the testis. The testis appeared normal. We then removed any redundant hydrocele sac tissue using our Bovie. We reapproximated the edges of the hydrocele sac behind the testis using a running 3-0 chromic suture. Hemostasis was obtained with the use of a Bovie. I then performed a cord block using half percent Marcaine. Testis was delivered back within the left hemiscrotum. The dartos muscle was reapproximated with simple interrupted 4-0 Vicryl sutures. The skin was closed with simple interrupted 4-0 chromic sutures. Skin glue was then applied followed by a fluff dressing and scrotal support. The patient tolerated this procedure well with no complications. Date of Procedure: 01/27/25
== END 2025-01-27 11:29 | disposition home or self-care (01) ==
PROVIDERS: PCP Family Medicine; Visit Provider Urology
PROC: (CPT 55040; principal; 2025-01-27 08:30)
DX: E11.9 Type 2 diabetes mellitus without complications; K75.81 Nonalcoholic steatohepatitis (NASH); G47.33 Obstructive sleep apnea (adult) (pediatric); Z99.89 Dependence on other enabling machines and devices; E66.9 Obesity, unspecified; N43.3 Hydrocele, unspecified
CPT/HCPCS: 55040; J0131; J0665; J0690; J1100; J2250; J2405; J2704; J3010

== ENCOUNTER 2025-05-20 00:53 | Outpatient (CLI) | payer BC, SELFPAY ==
[2025-05-20 07:34] LABS: Hemoglobin A1C 5.3 % (<5.7)
[2025-05-20 07:46] LABS: COMMENT (LAB VIEW ONLY) 216.36 mg/dL; Microalb ug/mg Crea 2.2 ug/mg Cr
[2025-05-20 07:49] LABS: Anion Gap 9.3 mmol/L (3-11); BUN 23 mg/dL (7-18); CO2 26.7 mmol/L (21.0-32.0); CREATININE 0.8 mg/dL (0.70-1.30); Calcium 8.5 mg/dL (8.5-10.1); Calculated LDL 105 mg/dL (<100); Chloride 104 mmol/L (98-107); Cholesterol 169 mg/dL (<200); Estimated GFR 109.17 (mL/min/1.73m2); Glucose 87 mg/dL (74-106); HDL Cholesterol 49 mg/dL (>or=40); Sodium 140 mmol/L (136-145); Triglyceride 76 mg/dL (<150)
== END 2025-05-20 00:54 | disposition home or self-care (01) ==
PROVIDERS: PCP Family Medicine; Visit Provider Family Medicine
DX: E11.9 Type 2 diabetes mellitus without complications (principal)
CPT/HCPCS: 36415; 80048; 80061; 82043; 82570; 83036